=== PATIENT | male | born 1975 | race Caucasian/White ===

== ENCOUNTER 2024-04-02 18:42 | Emergency (ER) | payer OTHER, SELFPAY ==
[2024-04-02 18:44] VITALS: BP 158/101
[2024-04-02] MEDS: ADACEL 0.5 ML IM (19:07)
--- NOTE | 2024-04-02 23:33 | ED.GENMED ---
History of Present Illness
General
Chief Complaint: Skin Surface Trauma
Source: patient and family
Exam Limitations: none
Time Seen by Provider: 04/02/24 18:54
Nursing documentation reviewed up to this point in time: agreed with
History of Present Illness
History of Present Illness:
48-year-old male with no reported chronic medical issues presents to the emergency room with his family for evaluation of an ear laceration. Patient says that he was holding his dinner knife tonight at the table and became animated while telling a
story and accidentally punctured his right ear. Came to the emergency room for repair. Unsure of last tetanus. No other injuries.
Past History
Past History
ED Past Medical History: None
Social History
Tobacco: Non-smoker
Personal:
Living: with family
Review of Systems
Review of Systems
All Other Systems: ROS reviewed and negative except as documented in HPI and ROS
Skin: Reports other (Ear laceration)
Phy Exam
Physical Exam
Physical Exam:
General: Well appearing and non-toxic
HEENT: protecting airway; on pinna of the right ear he has a 1.5 cm laceration along the curvature of the ear with no hematoma�laceration goes through and through
Neck: appears supple
CV: No evidence of cyanosis
Resp: No accessory muscle use
Abd: Non-distended
Extremities: No deformities
Neuro: Alert
Psych: Normal affect
Scores
Heart Failure Risk
Heart Failure Risk Score: Not Applicable
Heart Score for Chest Pain Patients
STEMI patient?: Not applicable
Withdrawal Assessment of Alcohol
Withdrawal Assessment Completed?: Not applicable
Course
Orders/Labs/Results
Orders:
Orders
04/02/24 18:56
Tetanus/Diphth/Acelpertussis [Adacel] 0.5 ml IM .ONCE ONE
Vital Signs
Initial and Last Documented VS:
Initial Vital Signs
Temp Pulse Resp BP Pulse Ox
36.6 C 86 16 158/101 99
04/02/24 18:44 04/02/24 18:44 04/02/24 18:44 04/02/24 18:44 04/02/24 18:44
Last Documented Vital Signs
Temp Pulse Resp BP Pulse Ox
36.6 C 86 16 158/101 99
04/02/24 18:44 04/02/24 18:44 04/02/24 18:44 04/02/24 18:44 04/02/24 18:44
Procedures
Laceration Closure
Right Ear:
Status of Wound: clean
Size of Wound in cm: 1.5
Description of Wound Edges: sharp
Preparation: cleaned with saline
Anesthesia: 1% Lidocaine
Revision/Debridement: routine- no revision
Type of Closure: layered closure (Through and through laceration-sutures posterior and anterior)
Skin Closure Material: 5-0 vicryl
Number of sutures: 4
MDM/Problems Addressed
Differential Diagnosis Includes:
Ear laceration
MDM/Problems Addressed:
48-year-old male presents with ear laceration�has a through and through laceration along the curvature of his right ear appears to have poked himself with a kitchen knife. Laceration repaired with sutures anterior and posteriorly with good
cosmesis. Absorbable sutures. Fortunately he had no hematoma in the ear and ear otherwise appearing well. Discharged with instructions for return with signs of infection.
Acute Exacerbation and/or Progression of Chronic Illness:
Acutely hypertensive without signs or symptoms of hypertensive emergency�no indication for emergent antihypertensives
Acute Exacerbation and/or Progression of Chronic Illness: HTN
*Pulse Oximetry
Patient hypoxic: no
*Critical Care Note
Total Time (30-74mins, 75-104mins- exclusive of procedures): Not Applicable
ED Attending Note
-
Portions of this chart may have been created with voice recognition software.� Occasional wrong word or��sound alike� substitutions may have occurred due to the inherent limitations of voice recognition software.
Discharge Plan
Departure
Patient Disposition: Home (Routine Discharge)
Date of Disposition: 04/02/24
Time of Disposition: 19:23
Patient with high blood pressure during this ER visit?: Yes
Discharge Problem:
Laceration of ear
Instructions: Laceration Repair With Stitches (DC)
Prescriptions:
No Action
omeprazole [Prilosec] 20 MG capsule,delayed release(DR/EC)
20 mg PO DAILY
ondansetron 4 MG tablet,disintegrating
4 mg PO TIDPRN PRN (Reason: NAUSEA) Qty: 6 0RF
Activity Restrictions/Additional Instructions:
Thank you for visiting the Emergency Department at [facility].
1. Please schedule a follow up appointment as directed. Call first thing tomorrow morning to make an appointment.
2. If indicated, please take your medications as instructed and indicated on discharge paperwork.
3. If any of your symptoms do not improve, or persist, or become more severe within 6-12 hours, please return to the emergency department for further care.
4. Please return to the emergency department if you develop a headache, neck pain/stiffness, fever greater than 100.4F, chest pain, shortness of breath, persistent nausea, vomiting, slurred speech, difficulty walking, numbness/tingling, weakness,
signs of infection or any other symptoms that are worrisome to you.
Please call [phone] if you have any questions.
Interventions
Interventions:
*Risk Screen - Suicide Last Done: 04/02/24 18:44
*General Assessment Last Done: 04/02/24 19:28
*Neglect/Abuse Screening Last Done: 04/02/24 18:44
ED- Fall Risk Assessment Last Done: 04/02/24 19:28
*ED COVID-19 Vaccine History Last Done: 04/02/24 19:28
*Nursing Disposition Last Done: 04/02/24 19:28
ED-Skin Assessment Last Done: 04/02/24 19:13
Discharge Date and Time
Discharge Date/Time: 04/02/24 19:29
Print Language: [id number]
== END 2024-04-02 19:29 | disposition home or self-care (01) ==
LOC: EMR 18:42
PROVIDERS: EMERGENCY PHYSICIAN Emergency Medicine; FAMILY PHYSICIAN Nurse Practitioner Family
DX: S01.311A Laceration without foreign body of right ear, initial encounter (principal); X58.XXXA Exposure to other specified factors, initial encounter; Z23 Encounter for immunization
CPT/HCPCS: 99282; 12011; 90471; 90715